=== PATIENT | female | born 1945 | race Caucasian/White ===

== ENCOUNTER → 2017-02-06 | Outpatient (CLI) | payer MEDICARE, MEDICAID ==
[~2017-02-06] MED LIST: ASPIRIN81 MG PO; CARAFATE1 GM PO; CARDIZEM SR120 MG PO; CLARITIN10 MG PO; COUMADIN3 MG PO; CYMBALTA60 MG PO; DEXILANT60 MG PO; ELIQUIS5 MG PO; FLONASE16 GM NASBOTH; LOVASTATIN40 MG PO; MILLTRIUM SENI1 EACH PO; NEXIUM40 MG PO; NORCO 325-5 MG1 TAB PO; NORVASC10 M1 PO; PREMARIN VAG; PRINIVIL10 MG PO; PROBIOTIC1 EAC1 PO; TAZTIA XT360 MG PO; TOPROL XL25 MG PO; TRAZODONE HCL100 MG PO; TRICOR145 M1 PO; ULTRAM50 MG PO; VITAMIN D1000 UNIT PO; ZANTAC150 MG PO
== END | disposition short-term general hospital (02) ==
LOC: CLRHEU 10:19
DX: M79.7 Fibromyalgia (principal); M19.011 Primary osteoarthritis, right shoulder; M19.012 Primary osteoarthritis, left shoulder

== ENCOUNTER → 2017-02-13 | Outpatient (CLI) | payer MEDICARE, MEDICAID | END | disposition short-term general hospital (02) | LOC: CLCARD 09:10 | DX: I25.10 Atherosclerotic heart disease of native coronary artery without angina pectoris (principal); I65.23 Occlusion and stenosis of bilateral carotid arteries; R00.1 Bradycardia, unspecified; I73.9 Peripheral vascular disease, unspecified; I10 Essential (primary) hypertension; E78.5 Hyperlipidemia, unspecified; I49.3 Ventricular premature depolarization; R94.31 Abnormal electrocardiogram [ECG] [EKG]; Z86.718 Personal history of other venous thrombosis and embolism; Z87.891 Personal history of nicotine dependence ==